=== PATIENT | female | born 1965 | race Caucasian/White ===

== ENCOUNTER 2019-11-10 15:41 | Emergency (ER) | payer BC, OTHER ==
[~2019-11-10] VITALS: Ht 172.7 cm; Wt 68.9 kg
[2019-11-10 16:13] VITALS: BP 120/77
[2019-11-10] MEDS ORDERED: LIDOCAINE 1% INJ 50 ML MDV IJ ONE (17:12)
[2019-11-10] MEDS ORDERED: LIDOCAINE HCL/PF 1% 30 ML VIAL TP ONE (18:00)
== END 2019-11-10 18:16 | disposition home or self-care (01) ==
LOC: ER 15:44
DX: N76.4 Abscess of vulva (principal); Z88.5 Allergy status to narcotic agent
CPT/HCPCS: 56405; 76536; 99284; J3490 ×2

== ENCOUNTER 2024-04-05 15:32 | Emergency (ER) | payer BC, OTHER ==
[~2024-04-05] VITALS: Ht 170.2 cm; Wt 71.7 kg
[2024-04-05] MEDS ORDERED: ALBU18HF2 INH (16:46)
[2024-04-05] MEDS ORDERED: AMOX500C2 PO (16:46)
[2024-04-05] MEDS ORDERED: AZIT1PAC9 PO (16:48)
[2024-04-05 17:12] VITALS: BP 125/70; TEMP 98.2; O2SAT 98
== END 2024-04-05 17:12 | disposition home or self-care (01) ==
LOC: ER 15:34
DX: R05.3 Chronic cough (principal); R07.89 Other chest pain; Z88.8 Allergy status to other drugs, medicaments and biological substances; Z88.5 Allergy status to narcotic agent
CPT/HCPCS: 71045-TC